=== PATIENT | female | born 1970 | race Caucasian/White ===

== ENCOUNTER 2017-11-30 06:16 | Day surgery (SDC) | payer BC ==
[2017-11-29 17:01] LABS: Absolute Lymphocytes (CBC) 1.9 K/uL (0.7-4.9); Absolute Monocytes 0.4 K/uL (0.1-1.3); Absolute Neutrophil 4.6 K/uL (1.8-8.0); Basophils % 0.8 % (0-1.3); Eosinophils % 1.3 % (0-4.4); Hematocrit 33.2 % (36.0-45.0); Lymphocytes % 26.3 % (15.3-44.8); MCH 26.3 pg (27.0-35.0); MCV 79.6 fL (80-100); MPV 7.5 fL (7.6-11.3); Monocytes % 6.2 % (3.3-12.3); RBC Red Blood Cell Count 4.18 M/uL (3.86-4.86)
[2017-11-29 17:05] LABS: Protime INR 0.98
[2017-11-29 17:59] LABS: Urine Appearance CLEAR; Urine Bilirubin NEGATIVE (NEG); Urine Blood 2+ (NEG); Urine Color YELLOW; Urine Glucose NEGATIVE (NEG); Urine Protein NEGATIVE (NEG); Urine Specific Gravity 1.025 (1.005-1.030); Urine Urobilinogen 0.2 mg/dL (0.2-1.0)
[2017-11-29 18:00] LABS: Urine Microscopic Reflex ORDER UMIC
[2017-11-29 19:36] LABS: Urine Bacteria <20 /HPF (<20); Urine Culture Reflex Order NOT NEEDED; Urine RBC <5 /HPF (NONE SEEN)
[2017-11-29 19:37] LABS: Calcium Oxalate Crystals- Ur FEW (NONE SEEN); Urine Mucus 1+ /HPF (NONE SEEN)
[2017-11-30] MEDS ORDERED: Ringers Lactate 1,000 ML IV ONE (06:52)
[2017-11-30] MEDS ORDERED: SILVER NITRATE 1 APPL TOP ONE (07:04)
[2017-11-30] MEDS: CEFAZOLIN/SWI 1gm 1 GM/10 ML SYR ONE ×2 (07:08→08:09)
[2017-11-30] MEDS ORDERED: PROPOFOL 200 MG/20 ML VIAL IV ONE (07:20)
[2017-11-30] MEDS ORDERED: KETOROLAC 30 MG/ML INJ ONE (07:22)
[2017-11-30] MEDS ORDERED: FENTANYL CITR 100 MCG/2 ML ONE ×2 (07:22)
[2017-11-30] MEDS ORDERED: ONDANSETRON HCL 40 MG/20 ML VIAL ONE (07:22)
[2017-11-30] MEDS ORDERED: DEXAMETHASONE 10 MG/ML VIAL ONE (07:22)
[2017-11-30] MEDS ORDERED: MIDAZOLAM HCL 2 MG/2 ML INJ ONE (07:22)
[2017-11-30] MEDS ORDERED: LIDOCAINE 2% MPF 5 ML VIAL ONE (07:22)
[2017-11-30] MEDS: SILVER NITRATE 1 APPL TOP ONE ×2 (09:18→09:37)
[2017-11-30] MEDS ORDERED: IBUPROFEN 400 MG TAB ONE (10:20)
--- NOTE | 2017-11-30 11:34 | OP ---
Surgeon: Sage Mayers MD Indications: A 46-year-old female, with an endometrial lesion, benign biopsy prior to admission. Fu ll preoperative counseling concerning procedures and complications, including infection, blood loss, anesthetic complications, injury to bladder, bowel, ureter, postoperative complications, clots in leg s, pneumonia, and no guarantee of course that the procedure will be effective, the patient knows this . Description Of Procedure: After general anesthesia and time-out was performed, the laminaria tent an d packs placed the evening prior were removed. The cervix already admitted the largest Fernandes dilator . Sounded to 10 to 10.5 cm. A hysteroscopy was performed. There was seemed to be at least a 3 cm o r more lesion involving the upper left portion of the patient's uterus. MyoSure was then performed a nd the specimen was eventually removed. The base of the fibroid was also treated with MyoSure as wel l as the rest of the endometrial cavity. 100 cc difference in fluid in and fluid out. This was thou ght to be insignificant. After MyoSure, endometrial ablation was performed. 6.5 length, 4.7 width, power 169, activation 56 seconds. Procedure discontinued. Tenaculum alexandr was treated with silver ni trate. Total blood loss thought to be 100 cc or less. The patient tolerated all procedures well, ortiz d 1 g of Ancef prior to the surgery, transferred to the recovery room in good condition. TOSIN/ADILENE Voice ID: [id number] Report ID: [id number]
--- NOTE | 2017-11-30 11:40 | DS ---
Hospital Course: The patient underwent general anesthetic, hysteroscopy, MyoSure, removal of the fib roid and ablation. Less than 100 cc blood loss, 100 cc or less fluid deficit, tolerated all procedur es well. She will be observed for the next 2 hours and then dismissed, to return to my office in 1 w [place]. To report any temperature elevation of 100 degrees or greater, severe pain, heavy bleeding, or any other type of abnormalities. She is doing well at this point, knows to contact me over the weeke nd if she has any problems. Final Diagnoses: Dysfunctional bleeding, endometrial fibroid, hysteroscopy, MyoSure, removal of fibr oid and ablation. TOSIN/ADILENE Voice ID: [id number] Report ID: [id number]
--- NOTE | 2017-11-30 11:43 | PREOPHP ---
Date of Admission: 11/30/2017 History Of Present Illness: A 46-year-old female with endometrial lesion, probable fibroid, dysfunct ional bleeding. Endometrial biopsy prior to surgery benign. Full preoperative counseling concerning procedure and possible complications, including infection, blood loss, anesthetic complications, inj ury to bladder, bowel, ureter, postoperative complications, clots in legs, pneumonia, and the efficac y of the procedure because is not guaranteed. She knows she could have recurrent or continued bleedi ng. Family History: Noncontributory. Allergies: NONE. Medications: No medicines prior to admission of any significance. Physical Examination: Completely normal. HEENT: Clear. Pupils are equal, round, and reactive to light and accommodation. Conjunctivae well perfused. No oral, lingual, or buccal lesions. Chest and Lungs: Clear. Heart: Without murmurs, thrills, heaves, or rubs. Breasts: Not examined. Abdomen: Soft. Uterus, second to third degree, retroverted, upper normal size, but otherwise clear. Extremities: Clear without edema, cyanosis, or clubbing. Plan: Essentially healthy female with endometrial lesion for hysteroscopy, MyoSure, removal of lesio n and ablation. TOSIN/ADILENE Voice ID: [id number]
== END 2017-11-30 11:20 | disposition home or self-care (01) ==
LOC: OR 06:16
PROVIDERS: ATTEND Specialist
PROC: 0U5B8ZZ Destruction of Endometrium, Via Natural or Artificial Opening Endoscopic (ICD-10-PCS; 2017-11-30)
PROC: 0UB98ZZ Excision of Uterus, Via Natural or Artificial Opening Endoscopic (ICD-10-PCS; principal; 2017-11-30 07:30)
DX: D25.9 Leiomyoma of uterus, unspecified (principal); N93.8 Other specified abnormal uterine and vaginal bleeding; K21.9 Gastro-esophageal reflux disease without esophagitis
CPT/HCPCS: 36415; 81003; 81015; 84703; 85025; 85610; 85730; 86850; 86900; 86901; 88305; J0690; J1100; J2250; J2405; J3010

== ENCOUNTER 2018-02-15 17:24 | Emergency (ER) | payer BC ==
[2018-02-15] MEDS ORDERED: LIDOCAINE 1% MPF 30 ML VIAL ONE (17:57)
[2018-02-15] MEDS ORDERED: TETANUS & DIPHTHERIA TOX,ADULT 0.5 ML VIAL ONE (17:57)
--- NOTE | 2018-02-15 18:34 | ER ---
Nurse's Notes [facility] Name: Araceli Lombardo Age: 47 yrs Sex: Female : 1970 Arrival Date: 02/15/2018 Time: 17:26 Bed 13 Private MD: Mahendra Pinto Diagnosis: Laceration without foreign body of finger without damage to nail-Right index Presentation: 02/15 17:34 Presenting complaint: Patient states: I cut my right hand a little while washing dishes la1 about 30 minutes ago. Transition of care: patient was not received from another setting of care. Complicating Factors: There are no complicating factors for this patient. Onset of symptoms was February 15, 2018. Risk Assessment: Do you want to hurt yourself or someone else? Patient reports no desire to harm self or others. Initial Sepsis Screen: Does the patient meet any 2 criteria? No. Patient's initial sepsis screen is negative. Does the patient have a suspected source of infection? No. Patient's initial sepsis screen is negative. Care prior to arrival: None. 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 - Social history:: Smoking status: Patient/guardian denies using tobacco. - Ebola Screening: : No symptoms or risks identified at this time. Screenin:59 Abuse screen: Denies threats or abuse. Denies injuries from another. Nutritional mg2 screening: No deficits noted. Tuberculosis screening: No symptoms or risk factors identified. Fall Risk None identified. Assessment: 17:58 General: Appears in no apparent distress. comfortable, Behavior is calm, cooperative. mg2 Pain: Complains of pain in right hand Pain does not radiate. Pain currently is 3 out of 10 on a pain scale. Quality of pain is described as aching, Pain began suddenly, 30 min ago. Is intermittent. Neuro: Level of Consciousness is awake, alert, obeys commands, Oriented to person, place, time, situation. Cardiovascular: Capillary refill < 3 seconds Patient's skin is warm and dry. Respiratory: Airway is patent Respiratory effort is even, unlabored, Respiratory pattern is regular, symmetrical. GI: No signs and/or symptoms were reported involving the gastrointestinal system. : No signs and/or symptoms were reported regarding the genitourinary system. EENT: No signs and/or symptoms were reported regarding the EENT system. Derm: Skin is intact, is healthy with good turgor, Skin is pink, warm \T\ dry. normal, Wound noted right hand Wound is open and not bleeding profusely. Musculoskeletal: Circulation, motion, and sensation intact. Capillary refill < 3 seconds. Injury Description: Laceration sustained to right hand is clean, 0.5 to 2.5 cm long, was sustained 30-60 minutes ago. is bleeding a small amount. Vital Signs: 17:35 BP 157 / 97; Pulse 97; Resp 16; Temp 98.7; Pulse Ox 98% on R/A; Weight 93.44 kg; Height la1 5 ft. 7 in. (170.18 cm); 18:49 BP 140 / 78; Pulse 80; Resp 18; Pulse Ox 100% on R/A; Pain 0/10; mg2 17:35 Body Mass Index 32.26 (93.44 kg, 170.18 cm) la1 ED Course: 17:26 Patient arrived in ED. rg4 17:26 Mahendra Pinto MD is Private Physician. rg4 17:34 Triage completed. la1 17:35 Arm band placed on left wrist. la1 17:36 Qamar Swan PA is PHCP. cp 17:36 Manolo Barksdale MD is Attending Physician. cp 17:43 Jama Graves, KENN is Primary Nurse. mg2 18:23 XRAY Hand RIGHT 3 View In Process Unspecified. EDMS 18:48 Assist provider with laceration repair on right hand that was 2.5 cm. or less using 3 mg2 stitches under local anesthesia. Set up tray. Performed by Qamar CANAS Dressed with 4X4s, Patient tolerated well. Patient did not have IV access during this emergency room visit. 18:49 Patient has correct armband on for positive identification. 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 Exp: mg2 03/16/2020. Lot #: [id number]. } Route: IM; Site: right deltoid; 18:47 Follow up: Response: No adverse reaction mg2 18:26 Drug: Lidocaine-Epinephrine -1%: (1:100,000) 5 ml Volume: 20 ml; Route: Infiltration; mg2 18:47 Follow up: Response: No adverse reaction; Marked relief of symptoms mg2 Outcome: 18:34 Discharge ordered by . carline 18:50 Discharged to home ambulatory. mg2 18:50 Condition: stable 18:50 Discharge instructions given to patient, Instructed on discharge instructions, follow up and referral plans. Demonstrated understanding of instructions, follow-up care, wound care. 18:51 Patient left the ED. mg2 Signatures: Dispatcher [employer] EDMS Eric Barnes, RN RN la1 Qamar Swan PA PA cp Garcia, Rubi rg4 Jama Graves RN RN mg2
--- NOTE | 2018-02-15 18:34 | EDPHYS ---
Physician Documentation [facility] Name: Araceli Lombardo Age: 47 yrs Sex: Female : 1970 Arrival Date: 02/15/2018 Time: 17:26 Bed 13 Private MD: Mahendra Pinto ED Physician Manolo Barksdale HPI: 02/15 17:43 This 47 yrs old Female presents to ER via Ambulatory with complaints of cp Laceration To Hand. 17:43 The patient has a laceration occurred at home, due to broken glass. The laceration(s) cp is(are) located on the radial side right index finger. 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 - Social history:: Smoking status: Patient/guardian denies using tobacco. - Ebola Screening: : No symptoms or risks identified at this time. ROS: 17:45 Constitutional: Negative for body aches, chills, fever. cp 17:45 Eyes: Negative for injury, pain, redness, and discharge. cp 17:45 Cardiovascular: Negative for chest pain, palpitations. 17:45 Respiratory: Negative for cough, shortness of breath, wheezing. 17:45 Skin: Positive for laceration(s), of the right index finger. 17:45 Neuro: Negative for numbness. 17:45 All other systems are negative. Exam: 17:50 Constitutional: The patient appears in no acute distress, alert, awake, well developed, cp well nourished. 17:50 Head/Face: Normocephalic, atraumatic. cp 17:50 Musculoskeletal/extremity: ROM: full active range of motion, in the right index finger, Perfusion: the extremity is normally perfused throughout, Sensation intact. Tendon exam: specific tendon testing normal through active and passive range of motion 17:50 Skin: injury, laceration(s), the wound is approximately 2.5 cm(s), of the radial side proximal phalanx right index finger, that can be described as clean, linear, without bleeding. Vital Signs: 17:35 BP 157 / 97; Pulse 97; Resp 16; Temp 98.7; Pulse Ox 98% on R/A; Weight 93.44 kg; Height la1 5 ft. 7 in. (170.18 cm); 18:49 BP 140 / 78; Pulse 80; Resp 18; Pulse Ox 100% on R/A; Pain 0/10; mg2 17:35 Body Mass Index 32.26 (93.44 kg, 170.18 cm) la1 Laceration: 18:30 Wound Repair of 2.5cm ( 1.0in ) subcutaneous laceration to proximal phalanx radial side cp right index finger. Linear shaped.. Distal neuro/vascular/tendon intact. Anesthesia: Wound infiltrated with 3 mls of 1% lidocaine. Wound prep: Moderate cleansing by nurse. Skin closed with 3 4-0 Prolene using interrupted sutures and sterile technique. Dressed with Bacitracin, 4x4's. Patient tolerated well. MDM: 17:36 Patient medically screened. cp 17:45 Differential diagnosis: superficial laceration, tendon injury, vascular injury. cp 18:33 Data reviewed: vital signs, nurses notes, radiologic studies, plain films. cp 18:33 Counseling: I had a detailed discussion with the patient and/or guardian regarding: the cp historical points, exam findings, and any diagnostic results supporting the discharge/admit diagnosis, radiology results, to return to the emergency department if symptoms worsen or persist or if there are any questions or concerns that arise at home. Response to treatment: the patient's symptoms have markedly improved after treatment, Wound flushed and irrigated, wound explored and no foreign bodies observed. Will discharge to home for continued monitoring. 02/15 17:41 Order name: XRAY Hand RIGHT 3 View; Complete Time: 18:45 cp 02/15 19:42 Interpretation: Report reviewed. 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 Exp: mg2 03/16/2020. Lot #: [id number]. } Route: IM; Site: right deltoid; 18:47 Follow up: Response: No adverse reaction mg2 18:26 Drug: Lidocaine-Epinephrine -1%: (1:100,000) 5 ml Volume: 20 ml; Route: Infiltration; mg2 18:47 Follow up: Response: No adverse reaction; Marked relief of symptoms mg2 Disposition: 18:56 Co-signature as Attending Physician, Manolo Barksdale MD. rn Disposition: 02/15/18 18:34 Discharged to Home. Impression: Laceration without foreign body of finger without damage to nail - Right index. - Condition is Stable. - Discharge Instructions: Laceration Care, Adult, Sutured Wound Care. - Medication Reconciliation Form, Thank You Letter, Antibiotic Education, Prescription Opioid Use form. - Follow up: Private Physician; When: 7 - 10 days; Reason: Staple/Suture removal. - Problem is new. - Symptoms have improved. Signatures: Dispatcher [employer] EDManolo Loving MD MD rn Attema, Lee, RN RN la1 Qamar Swan PA PA cp Jama Graves RN RN mg2 Corrections: (The following items were deleted from the chart) 18:51 18:34 02/15/2018 18:34 Discharged to Home. Impression: Laceration without foreign body mg2 of finger without damage to nail - Right index. Condition is Stable. Forms are Medication Reconciliation Form, Thank You Letter, Antibiotic Education, Prescription Opioid Use. Follow up: Private Physician; When: 7 - 10 days; Reason: Staple/Suture removal. Problem is new. Symptoms have improved. cp
--- NOTE | 2018-02-15 18:39 | RAD REPORT ---
EXAM DESCRIPTION: RAD - Hand Right 3 View - 02/15/2018 6:22 pm CLINICAL HISTORY: finger laceration COMPARISON: No comparisons FINDINGS: No fracture or dislocation of the right hand is seen. Tiny radiodensity seen adjacent to t he first metacarpal head on the oblique view is questionable for a small foreign body if this is the site clinical laceration.
== END 2018-02-15 18:51 | disposition home or self-care (01) ==
LOC: ER 17:24
PROC: 0JQJ0ZZ Repair Right Hand Subcutaneous Tissue and Fascia, Open Approach (ICD-10-PCS; principal; 2018-02-15)
DX: S61.210A Laceration without foreign body of right index finger without damage to nail, initial encounter (principal); W25.XXXA Contact with sharp glass, initial encounter; Y93.9 Activity, unspecified; Y92.009 Unspecified place in unspecified non-institutional (private) residence as the place of occurrence of the external cause; Z23 Encounter for immunization
CPT/HCPCS: 90714; 99283

== ENCOUNTER 2021-10-28 14:48 | Inpatient (IN) | payer BC ==
--- OUTSIDE RECORDS SUMMARY | 2021-10-28 15:10 | XMS REPORT | Clinical Summary ---
:1970 Author Organization [facility] Address [address] [place] [address] Care Team Providers Name Role Phone Sage Mayers MD Unavailable Akanksha Hernández MD Primary Care Provider [phone] Allergies No known active allergies Medications Medication Sig Dispensed Refills Start Date End Date Status omeprazole (PriLOSEC) Take 20 mg by 0 Active 20 mg capsule mouth every morning before breakfast. lisinopril-hydrochloro Take 1 tablet by 0 Active thiazide mouth daily. (PRINZIDE,ZESTORETIC) 10-12.5 mg per tablet Active Problems Problem Noted Date Abnormal findings on diagnostic imaging of breast 08/2018 Surgical History Surgery Date Site/Laterality Comments APPENDECTOMY 03/29/2005 - 04/25/2005 removed COLON SURGERY 12/19/2016 Large polyp deep gregory - no cancer. COLONOSCOPY 11/08/2016 Small polyps rem ursula - no cancer. TUBAL LIGATION 02/26/2002 - Bilateral 02/25/2003 EXCISION FIBROID UTERINE 11/26/2017 ENDOMETRIAL ABLATION 11/26/2017 Medical History Medical History Date Comments Hypertension 08/26/16 Blood pressure medic ine Polyp of colon 11/08/16 Had 3 polyps removed from colon Anemia 08/26/16 blood test in Dec. D oc said normal Gastroesophageal reflux disease Family History Medical History Relation Name Comments Bone cancer Maternal Uncle -Breast cancer Neg Hx Ovarian cancer Neg Hx Pancreatic cancer Neg Hx Relation Name Status Comments Maternal Uncle Social History Tobacco Use Types Packs/Day Years Used Date Never Smoker Smokeless Tobacco: Never Used Alcohol Use Standard Drinks/Week Comments No 0 (1 standard drink = 0.6 oz pure alcoho l) Sex Assigned at Date Recorded Not on file Obstetrics History Para Term AB IAB SAB Ectopic Multiple Living Live Births 3 3 Date Outcome GA Total Labor/2nd/3rd Weight Sex Delivery Anes PTL Camille A 1 A5 Name Clin Labor Para Para Para Comments Menarche - age 11 Menopause - N/A; last period in 2017. No periods since endometrial ablation. Parity - , age 21 OCPs - 8 years, stopped 2002. Hormones - none - 6 months. 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
--- OUTSIDE RECORDS SUMMARY | 2021-10-28 15:10 | XMS REPORT | Continuity of Care Document ---
:1970 Author Organization [facility] t Address [address] [place] [address] [address]. [address] [place] [address] Care Team Providers Name Role Phone Edgar MALIK, Akanksha Maldonado Primary Care Physician [phone] Sunny Amos Attending Clinician Unavailable Matt Attending Clinician Unavailable Sunny Amos Attending Clinician [phone] Sunny Amos Admitting Clinician Unavailable Matt Admitting Clinician Unavailable Payers Payer Name Policy Type Policy Number Effective Date Expiration Date S su[place] [id number] 2020 00:00:00 [place] Problems Condition Condition Condition Status Onset Resolution Last Treating Co mments Source Name Details Category Date Date Treatment Clinician Date Abnormal Abnormal Disease Active Unive rs findings findings 2-07 ity of on on 00:00: [place] diagnostic diagnostic 00 imaging of imaging of An [facility] Allergies, Adverse Reactions, Alerts Allergy Allergy Status Severity Reaction(s) Onset Inactive Treating Comm ents Source Name Type Date Date Clinician No Known DA Active [facility] [place] [facility] No Known DA Active U [facility] 5[facility] [place] [facility]ie 00:[facility] Family History Family Member Diagnosis Comments Start Date Stop Date Source Maternal uncle Bone cancer [facility] [place] MD Chente Mann r [place] Family member -Breast cancer [facility] ity of [place] MD Chente Mann r [place] Family member Ovarian cancer [facility] ity of [place] MD Chente Mann r [place] Family member [facility] [place] Social History Social Habit Start Date Stop Date Quantity Comments Source Tobacco use and 2018-03-29 2018-03-29 Smokeless tobacco Un iversity of exposure 00:00:00 00:00:00 non-user [place] MD [facility]onzales [facility] Alcohol intake 2018-03-29 2018-03-29 Current University of 00:00:00 00:00:00 non-drinker of [place] MD Carmelita aranda alcohol (finding) Cancer [place] Sex Assigned At [birth year] [facility] 00:00:00 00:00:00 [place] MD [facility]onz[facility] Smoking Status Start Date Stop Date Source Never smoked tobacco [facility] Medications Ordered Filled Start Stop Current Ordering Indication Dosage Frequency Signature Comments Components Source Medication Medication Date Date Medication? Clinician (SIG) Name Name omeprazole Yes 20mg Take 20 mg U nivers (PriLOSEC) 2-01 by mouth ity o f 20 mg 10:48: every [place] capsule 58 morning MD before Anderso breakfast. n [facility] lisinopril- Yes 1{tbl} Take 1 Un jim hydrochloro 2-01 tablet by ity of thiazide 10:48: mouth Jennifer (Antwan SHAH 58 daily. MD VARELA) Anderso 10-12.5 mg n per tablet Cancer Center omeprazole Yes 20mg Take 20 mg U nivers (PriLOSEC) 2-01 by mouth ity o f 20 mg 10:48: every [place] capsule 58 morning before Anderso breakfast. n [facility] lisinopril- Yes 1{tbl} Take 1 Un jim hydrochloro 2-01 tablet by ity of thiazide 10:48: mouth [place] (ZIDE,Z 58 daily. MD VARELA) Anderso 10-12.5 mg n per tablet Cancer Center Procedures This patient has no known procedures. Plan of Care Planned Activity Planned Date Details Comments Source Future Scheduled 2021-08-31 COVID-19 Vaccination [facility] [place] Test 06:05:47 (#1) [code = COVID-19 [facility] (#1)] Center Future Scheduled 2021-08-19 COVID-19 Vaccination [facility] Test 05:56:10 (#1) [code = COVID-19 [facility] Vaccination (#1)] Center Encounters Start End Encounter Admission Attending Care Care Encounter Source Date/Time Date/Time Type Type Clinicians Facility Department ID 2021-08-18 Inpatient ANANTH PaganTO [id number] [facility] 15:10:00 Sunny [id number] [place] [facility] 2021-09-07 2021-09-07 Outpatient FOG_[place]_ AOSM AOSM [id number] [facility] 05:12:00 05:12:00 Phyllis [id number] [facility] 2021-09-07 2021-09-07 Outpatient Bette AOSM AOSM [id number] 00:00:00 00:00:00 Sunny Banuelos [id number] 2021-08-25 2021-08-25 Outpatient FOG_[place]_ AOSM AOSM [id number] [place] 02:51:00 02:51:00 Phyllis [id number] [facility] 2021-08-25 2021-08-25 Outpatient FOG_[place]_ AOSM AOSM [id number] [place] 02:29:00 02:29:00 Phyllis [id number] [facility] 2021-08-22 2021-08-22 Outpatient FOG_[place]_ AOSM AOSM [id number] [place] 05:43:00 05:43:00 Phyllis [id number] [facility] 2021-08-22 2021-08-22 Outpatient ANANTH Pagan [id number] [facility] 05:03:00 05:03:00 Sunny Nixon [place] [facility] 2021-08-22 2021-08-22 Outpatient ANANTH PaganTO [id number] [facility] 05:03:00 05:03:00 Sunny [id number] [place] [facility] 2021-08-222021-08-22 Outpatient BONNIE Amos [id number] 00:00:00 00:00:00 Sunny Banuelos [id number] Results Test Description Test Time Test Comments Results Result Comments Source GLUBED 2021-08-22 06:12:00 Test Item Value Reference Range Interpretation Comme nts GLUBED (test code = GLUBED) 120 mg/dL 60-125 N
[2021-10-28] MEDS ORDERED: ONDANSETRON 4 MG/2 ML VIAL ONE (15:30)
[2021-10-28] MEDS ORDERED: MORPHINE 4 MG/ML SYR ONE (15:30)
[2021-10-28 15:39] LABS: Absolute Lymphocytes (CBC) 2.5 K/uL (0.7-4.9); Hematocrit 37.3 % (36.0-45.0); Lymphocytes % 28.2 % (15.3-44.8); MCV 86.8 fL (80-100); MPV 7.6 fL (7.6-11.3)
--- NOTE | 2021-10-28 15:59 | RAD REPORT ---
EXAM DESCRIPTION: RAD - Chest Single View - 10/28/2021 3:52 pm CLINICAL HISTORY: CHEST PAIN Chest pain. COMPARISON: Chest Pa And Lat (2 Views) dated 12/02/2019; Chest Pa And Lat (2 Views) dated 11/08/2017; ABDOMEN ACUTE SERIES dated 04/15/2005 FINDINGS: Portable technique limits examination quality. The lungs are grossly clear. The heart is normal in size. No displaced fractures. IMPRESSION: No acute intrathoracic process suspected.
[2021-10-28 16:00] LABS: Potassium 3.5 mmol/L (3.5-5.1); Troponin High Sensitivity 5.1 pg/mL (<58.9)
--- NOTE | 2021-10-28 17:02 | RAD REPORT ---
EXAM DESCRIPTION: CT - Chest For Pe Angio - 10/28/2021 4:51 pm CLINICAL HISTORY: Chest pain. chest pain COMPARISON: No comparisons TECHNIQUE: CT angiogram of the pulmonary arteries was performed with MIP. All CT scans are performed using dose optimization technique as appropriate and may include automated exposure control or mA/KV adjustment according to patient size. FINDINGS: No evidence of pulmonary thromboembolism. No acute aortic finding demonstrated. The lungs are clear. No significant pericardial or pleural fluid. No concerning bony finding. IMPRESSION: No evidence of pulmonary thromboembolism. No acute lung findings.
--- NOTE | 2021-10-28 17:17 | ER ---
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 EMS states: VSS, NS on ll1 monitor, aspirin 324mg PO given en route. 20 G L AC. fingerstick 227. Coronavirus screen: Vaccine status: Patient reports receiving the 2nd dose of the covid vaccine. Client denies travel out of the [place] in the last 14 days. At this time, the client does not indicate any symptoms associated with coronavirus-19. Ebola Screen: Patient denies travel to an Ebola-affected area in the 21 days before illness onset. Initial Sepsis Screen: Does the patient meet any 2 criteria? No. Patient's initial sepsis screen is negative. Does the patient have a suspected source of infection? No. Patient's initial sepsis screen is negative. Risk Assessment: Do you want to hurt yourself or someone else? Patient reports no desire to harm self or others. Onset of symptoms was October 28, 2021. 15:08 Method Of Arrival: EMS ll1 15:08 Acuity: VALERIO 3 ll1 Triage Assessment: 15:10 General: Appears uncomfortable, Behavior is cooperative, appropriate for age. Pain: ll1 Complains of pain in L chest Pain currently is 9 out of 10 on a pain scale. Cardiovascular: Reports chest pain. 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 - Social history:: Smoking status: Patient denies any tobacco usage or history of. - Family history:: not pertinent. - Hospitalizations: : No recent hospitalization is reported. Screenin:17 Abuse screen: Denies threats or abuse. Nutritional screening: No deficits noted. ll1 Tuberculosis screening: No symptoms or risk factors identified. Fall Risk IV access (20 points). Total Arreola Fall Scale indicates No Risk (0-24 pts). Assessment: 16:00 Reassessment: No changes from previously documented assessment. Patient and/or family ll1 updated on plan of care and expected duration. Pain level reassessed. 17:00 Reassessment: No changes from previously documented assessment. Patient and/or family ll1 updated on plan of care and expected duration. Pain level reassessed. Patient is alert, oriented x 3, equal unlabored respirations, skin warm/dry/pink. 18:00 Reassessment: No changes from previously documented assessment. Patient and/or family ll1 updated on plan of care and expected duration. Pain level reassessed. 19:28 General: Appears in no apparent distress. Behavior is calm, cooperative. Pain: Denies ha1 pain. Neuro: Level of Consciousness is awake, alert, obeys commands, Oriented to person, place, time, situation, Speech is normal. Cardiovascular: Denies chest pain, Patient's skin is warm and dry. Rhythm is sinus rhythm. Respiratory: No deficits noted. Airway is patent Trachea midline Respiratory effort is even, unlabored, Respiratory pattern is regular, symmetrical. Vital Signs: 15:15 BP 181 / 105; Pulse 74; Resp 18; Temp 97.9; Pulse Ox 100% ; Pain 9/10; ll1 16:23 BP 162 / 101; Pulse 65; Resp 18; Pulse Ox 100% ; ll1 18:25 BP 154 / 100; Pulse 73; Resp 20; Pulse Ox 95% on R/A; ll1 19:31 BP 136 / 85; Pulse 77; Resp 19 S; Pulse Ox 97% on R/A; ha1 ED Course: 15:07 Patient arrived in ED. eb 15:08 Manolo Barksdale MD is Attending Physician. rn 15:09 Triage completed. ll1 15:09 Arm band placed on Patient placed in an exam room, on a stretcher. ll1 15:09 Maintain EMS IV. Dressing intact. Good blood return noted. Site clean \T\ dry. Gauge \T\ ll 1 site: 20 L AC. 15:16 Geri Hurley, RN is Primary Nurse. ll1 15:17 Patient has correct armband on for positive identification. Bed in low position. Call ll1 light in reach. Side rails up X2. Client placed on continuous cardiac and pulse oximetry monitoring. NIBP monitoring applied. monitor car operator on. 15:36 EKG done, by ED staff, reviewed by Manolo Barksdael MD. em1 15:54 XRAY Chest (1 view) In Process Unspecified. EDMS 16:53 CT Chest For PE Angio In Process Unspecified. EDMS 17:16 Nabor Richmond MD is Hospitalizing Provider. rn 23:20 No provider procedures requiring assistance completed. Patient admitted, IV remains in ll3 place. Administered Medications: 15:28 Drug: morphine 4 mg Route: IVP; Infused Over: 4 mins; Site: right antecubital; ss 17:17 Follow up: Response: No adverse reaction; Pain is decreased; RASS: Alert and Calm (0) ll1 15:28 Drug: Zofran (Ondansetron) 4 mg Route: IVP; Site: right antecubital; ss 17:17 Follow up: Response: No adverse reaction ll1 17:17 Not Given (given en routee): Aspirin Chewable Tablet 324 mg PO once; 81 mg tablets x 4 ll1 18:05 Drug: Nitroglycerin 0.4 mg Route: Sublingual; ll1 18:42 Follow up: Response: No adverse reaction ll1 Medication: 15:17 VIS not applicable for this client. ll1 Outcome: 17:16 Decision to Hospitalize by Provider. rn 23:20 Admitted to Tele accompanied by tech, via wheelchair, room 427, with chart, Report ll3 called to KENN Dunlap 23:20 Condition: stable 23:20 Instructed on the need for admit, Demonstrated understanding of instructions. 23:21 Patient left the ED. ll3 Signatures: Dispatcher [employer] EDMS Manolo Barksdale MD MD rn Martinez, Eric em1 Jillian Tineo RN RN Lanie Knapp Lynsay, RN RN ll1 Rory Shah RN RN ll3 Mamie Nowak RN RN ha1
--- NOTE | 2021-10-28 17:17 | EDPHYS ---
Physician Documentation [facility] Name: Araceli Lombardo Age: 50 yrs Sex: Female : 1970 Arrival Date: 10/28/2021 Time: 15:07 Bed 4 Private MD: ED Physician Manolo Barksdale HPI: 10/28 16:57 This 50 yrs old Female presents to ER via EMS with complaints of Chest Pain > 30 y/o. rn 16:57 The patient or guardian reports chest pain that is located primarily in the substernal rn area. Onset: just prior to arrival. The pain does not radiate. Associated signs and symptoms: Pertinent positives: diaphoresis, dizziness, lightheadedness, shortness of breath, Pertinent negatives: abdominal pain, syncope. The chest pain is described as a heaviness, a pressure. Duration: The patient or guardian reports a single episode, that is still ongoing. Modifying factors: The symptoms are alleviated by nothing. the symptoms are aggravated by nothing. Severity of pain: At its worst the pain was moderate in the emergency department the pain is unchanged. The patient has not experienced similar symptoms in the past. The patient has not recently seen a physician. Pt reports at work began with chest pain, substernal, nonradiating, assoc with nausea and sob. . 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 - Social history:: Smoking status: Patient denies any tobacco usage or history of. - Family history:: not pertinent. - Hospitalizations: : No recent hospitalization is reported. ROS: 16:57 Constitutional: Negative for fever, chills, and weight loss, Eyes: Negative for injury, rn pain, redness, and discharge, Cardiovascular: + chest pain Respiratory: + sob Abdomen/GI: Negative for abdominal pain, nausea, vomiting, diarrhea, and constipation, Back: Negative for injury and pain, MS/Extremity: Negative for injury and deformity, Skin: Negative for injury, rash, and discoloration, Neuro: Negative for headache, weakness, numbness, tingling, and seizure. Exam: 15:52 ECG was reviewed by the Attending Physician. rn 16:57 Constitutional: This is a well developed, well nourished patient who is awake, alert, rn and in no acute distress. Head/Face: Normocephalic, atraumatic. Eyes: Pupils equal round and reactive to light, extra-ocular motions intact. Lids and lashes normal. Conjunctiva and sclera are non-icteric and not injected. Cornea within normal limits. Periorbital areas with no swelling, redness, or edema. Cardiovascular: Regular rate and rhythm. No pulse deficits. Respiratory: No increased work of breathing, no retractions or nasal flaring. Abdomen/GI: Soft, non-tender Skin: Warm, dry MS/ Extremity: Pulses equal, no cyanosis. Neuro: Awake and alert, GCS 15 Vital Signs: 15:15 BP 181 / 105; Pulse 74; Resp 18; Temp 97.9; Pulse Ox 100% ; Pain 9/10; ll1 16:23 BP 162 / 101; Pulse 65; Resp 18; Pulse Ox 100% ; ll1 18:25 BP 154 / 100; Pulse 73; Resp 20; Pulse Ox 95% on R/A; ll1 19:31 BP 136 / 85; Pulse 77; Resp 19 S; Pulse Ox 97% on R/A; ha1 MDM: 15:08 Patient medically screened. rn 17:15 Differential diagnosis: acute myocardial infarction, acute pericarditis, anxiety, rn coronary artery disease pleurisy, pneumothorax, pulmonary embolus, stable angina, unstable angina. The patient was given aspirin in the Emergency Department. Data reviewed: vital signs, nurses notes, lab test result(s), EKG, radiologic studies, CT scan, plain films. Counseling: I had a detailed discussion with the patient and/or guardian regarding: the historical points, exam findings, and any diagnostic results supporting the discharge/admit diagnosis, lab results, radiology results, the need for further work-up and treatment in the hospital. Response to treatment: the patient's symptoms have mildly improved after treatment, and as a result, I will admit patient. 17:16 Admission orders: after a detailed discussion of the patient's condition and case, the international student advisor orders are written by me. 10/28 15:15 Order name: Basic Metabolic Panel; Complete Time: 16:04 rn 10/28 15:15 Order name: CBC with Diff; Complete Time: 16:04 rn / 15:15 Order name: D-Dimer; Complete Time: 16:38 rn 10/28 15:15 Order name: NT PRO-BNP; Complete Time: 16:04 rn 10/28 15:15 Order name: Troponin HS; Complete Time: 16:04 rn 10/28 15:15 Order name: SARS RAPID; Complete Time: 17:37 rn 10/28 18:29 Order name: Hemoglobin A1c EDN[facility] 10/28 18:29 Order name: Lipid Profile [facility] 10/28 18:29 Order name: Thyroid Stimulating Hormone [facility] 10/28 18:29 Order name: CBC with Automated Diff [facility] 10/28 18:29 Order name: CBC with Automated Diff [facility] 10/28 18:29 Order name: CBC with Automated Diff [facility] 10/28 18:29 Order name: CBC with Automated Diff [facility] 10/28 18:29 Order name: Comprehensive Metabolic Panel [facility] 10/28 15:15 Order name: XRAY Chest (1 view); Complete Time: 16:04 rn 10/28 15:15 Order name: EKG; Complete Time: 15:16 rn 10/28 15:15 Order name: Cardiac monitoring; Complete Time: 15:32 rn 10/28 15:15 Order name: EKG - Nurse/Tech; Complete Time: 15:32 rn 10/28 16:04 Order name: CT Chest For PE Angio; Complete Time: 17:15 rn 10/28 18:29 Order name: CONS Physician Consult [facility] 10/28 18:29 Order name: 60g Consistent Carbohydrate (ADA 1800/2000) [facility] 10/28 18:29 Order name: Comprehensive Metabolic Panel [facility] 10/28 18:29 Order name: Comprehensive Metabolic Panel [facility] 10/28 18:29 Order name: Comprehensive Metabolic Panel [facility] 10/28 18:39 Order name: Troponin High Sensitivity [facility] 10/28 20:49 Order name: Glucose, Ancillary Testing EDN[facility] 10/28 15:15 Order name: IV Saline Lock; Complete Time: 15:16 rn 10/28 15:15 Order name: Labs collected and sent; Complete Time: 15:16 rn 10/28 15:15 Order name: O2 Per Protocol; Complete Time: 15:16 rn 10/28 15:15 Order name: O2 Sat Monitoring; Complete Time: 15:16 rn EC:52 Rate is 69 beats/min. Rhythm is regular. QRS [place] is Normal. CA interval is normal. QRS rn interval is normal. QT interval is normal. No Q waves. T waves are Normal. No ST changes noted. Clinical impression: Normal ECG. Interpreted by me. Reviewed by me. Administered Medications: 15:28 Drug: morphine 4 mg Route: IVP; Infused Over: 4 mins; Site: right antecubital; ss 17:17 Follow up: Response: No adverse reaction; Pain is decreased; RASS: Alert and Calm (0) ll1 15:28 Drug: Zofran (Ondansetron) 4 mg Route: IVP; Site: right antecubital; ss 17:17 Follow up: Response: No adverse reaction ll1 17:17 Not Given (given en routee): Aspirin Chewable Tablet 324 mg PO once; 81 mg tablets x 4 ll1 18:05 Drug: Nitroglycerin 0.4 mg Route: Sublingual; ll1 18:42 Follow up: Response: No adverse reaction ll1 Disposition Summary: 10/28/21 17:16 Hospitalization Ordered Hospitalization Status: Observation rn Provider: Nabor Richmond rn Location: Telemetry/MedSurg (observation) rn Condition: Stable rn Problem: new rn Symptoms: have improved rn Bed/Room Type: Standard rn Room Assignment: 427(10/28/21 21:56) Diagnosis - Chest pain, unspecified rn Forms: - Medication Reconciliation Form rn - SBAR form rn Signatures: Dispatcher [employer] Manolo Knox MD MD rn Smirch, Shelby, RN RN ss Garcia, Cindy, RN RN Geri Marquez RN RN 1 Corrections: (The following items were deleted from the chart) 21:56 17:16 rn cg
[2021-10-28 17:31] LABS: SARS-CoV-2 Antigen Rapid Res Negative (Negative)
[2021-10-28] MEDS ORDERED: NITROGLYCERIN 0.4 MG/TAB SL ONE (18:15)
[2021-10-28] MEDS ORDERED: HYDRALAZINE HCL 20 MG/ML VIAL IV PRN (18:21)
[2021-10-28] MEDS ORDERED: GLUCAGON 1 MG/VIAL IM PRN (18:22)
[2021-10-28] MEDS ORDERED: SIMETHICONE 80 MG TAB PO ONE (18:22)
[2021-10-28] MEDS ORDERED: SIMETHICONE 40 MG/ 0.6 ML PO PRN (18:22)
[2021-10-28] MEDS ORDERED: MAGNES/ALUMIN/SIMET 30ML UCUP PO PRN (18:22)
[2021-10-28] MEDS ORDERED: D50W 25 GM/50 ML SYRINGE IV PRN (18:22)
--- NOTE | 2021-10-28 18:34 | P.HP ---
Certification for Inpatient Patient admitted to: Inpatient Patient will require the following post-hospital care: None Practitioner: I am a practitioner with admitting privileges, knowledge of patient current condition, hospital course, and medical plan of care. Services: Services provided to patient in accordance with Admission requirements found in Title 42 Section 412.3 of the Code of Federal Regulations Patient History Date of Service: 10/28/21 Primary Care Provider: stephanie Reason for admission: chest pain History of Present Illness: Patient is a pleasant 50 year old. She has a history of dm2 for a year. HTN, hypothyroidism and gerd. She was at school. When she started feeling some chest pressure. Starting from her left axilla and migrating towards the sternum. The pain was a 9/10 and was a squeezing type. She had not taken her lisinopril this morning. The patient lasted approx 30min. She then came to the ER. Initial work up was negative. She has had similar symptoms in the past. However not frequently or for this duration. Her last a1c was 6.2 Allergies No Known Allergies Allergy (Verified 11/29/17 16:08) Home Medications: Omeprazole 20 mg PO DAILY 11/29/17 Review of Systems 10-point ROS is otherwise unremarkable Cardiovascular: Chest Pain, Palpitations Physical Examination - Physical Exam General: Alert, In no apparent distress HEENT: Atraumatic, PERRLA, Mucous membr. moist/pink, EOMI, Sclerae nonicteric Neck: Supple, 2+ carotid pulse no bruit, No LAD, Without JVD or thyroid abno rmality Respiratory: Clear to auscultation bilaterally, Normal air movement Cardiovascular: Regular rate/rhythm, Normal S1 S2 Gastrointestinal: Normal bowel sounds, No tenderness Musculoskeletal: No tenderness Integumentary: No rashes Neurological: Normal gait, Normal speech, Normal strength at 5/5 x4 extr, Normal tone, Normal affect Lymphatics: No axilla or inguinal lymphadenopathy - Studies Laboratory Data (last 24 hrs) 10/28/21 15:10: WBC 8.70, Hgb 12.3, Hct 37.3, Plt Count 455 H 10/28/21 15:10: Sodium 138, Potassium 3.5, BUN 16, Creatinine 1.14, Glucose 194 H Assessment and Plan - Problems (Diagnosis) (1) Chest pain Current Visit: Yes Status: Acute Plan: CT is negative for PE. Her initial troponin are normal. Her EKG is normal. Will admit her for a rule out. the patient is a diabetic and at higher risk. Will have her seen by Cardiology. If her troponins remain negative we can discharge her for an out patient work up. 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 Will continue the metformin and add sliding scale insulin. Will check her a1c again. start an ada diet. 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 Will check a tsh on the patient. (5) GERD (gastroesophageal reflux disease) Current Visit: Yes Status: Chronic Plan: restart her omeprazole. Will add simethicone and mylanta to give the patient relief. Qualifiers: Esophagitis presence: esophagitis presence not specified Qualified Code(s): K21.9 - Gastro-esophageal reflux disease without esophagitis Discharge Plan: Home Plan to discharge in: 48 Hours - Advance Directives Does patient have a Living Will: No Does patient have a Durable POA for Healthcare: No - Code Status/Comfort Care Code Status Assessed: No Code Status: Full Code Critical Care: No Time Spent Managing Pts Care (In Minutes): 45
[2021-10-28] MEDS: INSULIN -REGULAR HUMAN 50 UNIT/0.5 ML ML SQ SCH (21:00)
[2021-10-28 21:40] VITALS: BMI 34.9
[2021-10-29 02:31] VITALS: O2SAT 97
[2021-10-29 05:37] LABS: Absolute Lymphocytes (CBC) 2.6 K/uL (0.7-4.9); Hematocrit 34.1 % (36.0-45.0); Lymphocytes % 31.1 % (15.3-44.8); MPV 7.2 fL (7.6-11.3); RBC Red Blood Cell Count 4.01 M/uL (3.86-4.86)
[2021-10-29] MEDS ORDERED: carvediloL 3.125 MG TAB PO SCH (06:00)
[2021-10-29 06:03] LABS: Albumin 3.1 g/dL (3.4-5.0); Bilirubin Total 0.3 mg/dL (0.2-1.0); Potassium 3.7 mmol/L (3.5-5.1); Protein, Total 6.8 g/dL (6.4-8.2); Thyroid Stimulating Hormone 0.569 uIU/mL (0.360-3.740)
[2021-10-29] MEDS ORDERED: LEVOTHYROXINE SOD 0.125 MG TAB PO SCH (06:30)
[2021-10-29] MEDS ORDERED: PANTOPRAZOLE 40MG TABLET PO SCH (06:30)
[2021-10-29] MEDS: INSULIN -REGULAR HUMAN 50 UNIT/0.5 ML ML SQ SCH (07:30)
[2021-10-29] MEDS ORDERED: METFORMIN ER 500 MG TAB PO SCH (08:00)
[2021-10-29] MEDS ORDERED: lisinopriL 20 MG TAB PO SCH (09:00)
[2021-10-29] MEDS ORDERED: ASPIRIN EC 81 MG TAB PO SCH (09:00)
[2021-10-29 09:07] VITALS: BP 122/70
--- NOTE | 2021-10-29 09:21 | EKG ---
Test Date: 2021-10-28 Test Time: 15:30:33 Commodities Broker: JOSE MEASUREMENT RESULTS: Intervals: Rate: 69 ID: [id number] QRSD: 98 QT: 438 QTc: 469 [place]: P: 25 ID: [id number] QRS: 36 T: 29 INTERPRETIVE STATEMENTS: Normal sinus rhythm Normal ECG No previous ECG available for comparison Electronically Signed On 10-29-21 09:18:43 CDT by Luis Newberry
[2021-10-29 09:30] VITALS: TEMP 98.1
--- NOTE | 2021-10-29 11:31 | P.DS ---
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 use: without ocean transportation intermediary use Diabetes mellitus complication status: without complication Qualified Code(s): E11.9 - Type 2 diabetes mellitus without complications (3) HTN (hypertension) Current Visit: Yes Status: Acute Qualifiers: Hypertension type: primary hypertension Qualified Code(s): I10 - Essential (primary) hypertension (4) Hypothyroidism Current Visit: Yes Status: Acute (5) GERD (gastroesophageal reflux disease) Current Visit: Yes Status: Chronic Qualifiers: Esophagitis presence: esophagitis presence not specified Qualified Code(s): K21.9 - Gastro-esophageal reflux disease without esophagitis Brief History of Present Illness: Patient is a pleasant 50 year old. She has a history of dm2 for a year. HTN, hypothyroidism and gerd. She was at school. When she started feeling some chest pressure. Starting from her left axilla and migrating towards the sternum. The pain was a 9/10 and was a squeezing type. She had not taken her lisinopril this morning. The patient lasted approx 30min. She then came to the ER. Initial work up was negative. She has had similar symptoms in the past. However not frequently or for this duration. Her last a1c was 6.2 Hospital Course: Patient was kept in house. She has no chest pain this morning. Was seen by Dr. Valero. Plan for out patient work up. Will discharge her and have her follow up with Dr. Valero and Dr. Pinto Vital Signs/Physical Exam: Temp Pulse Resp BP Pulse Ox 98.1 F 66 16 122/70 94 10/29/21 08:00 10/29/21 09:06 10/29/21 08:00 10/29/21 09:06 10/29/21 08:00 General: Alert, In no apparent distress HEENT: Atraumatic, PERRLA, EOMI Neck: Supple, JVD not distended Respiratory: Clear to auscultation bilaterally, Normal air movement Cardiovascular: Regular rate/rhythm, Normal S1 S2 Gastrointestinal: Normal bowel sounds, No tenderness Musculoskeletal: No tenderness Integumentary: No rashes Neurological: Normal speech, Normal tone, Normal affect Lymphatics: No axilla or inguinal lymphadenopathy Laboratory Data at Discharge: WBC 8.30 K/uL (4.3-10.9) 10/29/21 05:06 Hgb 11.7 g/dL (12.0-15.0) L 10/29/21 05:06 Hct 34.1 % (36.0-45.0) L 10/29/21 05:06 Plt Count 424 K/uL (152-406) H 10/29/21 05:06 Sodium 137 mmol/L (136-145) 10/29/21 05:06 Potassium 3.7 mmol/L (3.5-5.1) 10/29/21 05:06 BUN 12 mg/dL (7-18) 10/29/21 05:06 Creatinine 0.91 mg/dL (0.55-1.3) 10/29/21 05:06 Glucose 119 mg/dL (74-106) H 10/29/21 05:06 Total Bilirubin 0.3 mg/dL (0.2-1.0) 10/29/21 05:06 AST 14 U/L (15-37) L 10/29/21 05:06 ALT 24 U/L (12-78) 10/29/21 05:06 Alkaline Phosphatase 63 U/L (45-117) 10/29/21 05:06 Triglycerides 168 mg/dL (<150) H 10/29/21 05:06 Cholesterol 172 mg/dL (<200) 10/29/21 05:06 HDL Cholesterol 45 mg/dL (40-60) 10/29/21 05:06 Cholesterol/HDL Ratio 3.82 10/29/21 05:06 Home Medications: Fenofibrate Nanocrystallized [Fenofibrate] 145 mg PO DAILY 10/28/21 Furosemide 20 mg PO DAILY 10/28/21 Levothyroxine [Synthroid*] 0.125 mg PO DAILY 10/28/21 Metformin HCl 500 mg PO DAILY 10/28/21 lisinopriL [Lisinopril] 20 mg PO DAILY 10/28/21 Diet: ADA Activity: Ad josé Followup: Mahendra Pinto MD [ACTIVE - CAN ADMIT] - 1-2 Weeks Jose Valero MD [ACTIVE - CAN ADMIT] - 1 Week Time spent managing pt's care (in minutes): 20
[2021-10-29] MEDS ORDERED: ENOXAPARIN 40 MG/0.4 ML SQ SCH (17:00)
--- NOTE | 2021-10-30 12:13 | CON ---
Date of Consultation: 10/29/2021 Admitted on 10/28/[address] Richmond's service with chest pain. I saw the patient on 10/29/2021. History Of Present Illness: Ms. Lombardo is 50. Has a history of hypertension, diabetes, dyslipidemia, hypothyroidism. Came in with left-sided chest pain, more on the lateral chest underneath her left b reast without any nausea, vomiting, diaphoresis, PND, orthopnea, pedal edema, palpitations, or syncop e. CA has already been ruled out. She had a negative chest x-ray, negative CTA for pulmonary embolu s, although her D-dimer was elevated. Her troponin and BNP and EKG were unremarkable. She is pain f ree now. Past Medical History: As stated above. Allergies: NONE. Review of Systems: Negative. Social History: Negative. Family History: Noncontributory. Physical Examination: Vital Signs: Stable. She was afebrile. HEENT: Negative. Neck: Supple without any bruit, lymphadenopathy, JVD, or thyromegaly. Chest: Clear to auscultation and percussion. Cardiac: Revealed a regular rhythm and rate. No murmurs, gallops, or rubs. Abdomen: Benign. Extremities: Revealed no clubbing, cyanosis, or edema. Diagnostic Data: As stated earlier. Impression And Plan: Atypical chest pain in a patient with hypertension, diabetes and dyslipidemia. I think she deserves to have an outpatient MPI and an echocardiogram. I will make an arrangement fo r that. The case was discussed with Dr. Richmond. She can go home today. I will make arrangements for outpatient followup soon. Her diabetes, hypertension, hypertriglyceridemia, and hypothyroidism are stable. Elevated D-dimer is nonspecific as always. NB/MODL Voice ID: [id number] Report ID: [id number]
== END 2021-10-29 12:00 | disposition home or self-care (01) | DRG 313 ==
LOC: ER 14:48 → ERHOLD 18:23 → 4TH 22:26
PROVIDERS: ADMIT Internal Medicine; ATTEND Internal Medicine
DX: R07.89 Other chest pain (principal); E03.9 Hypothyroidism, unspecified; K21.9 Gastro-esophageal reflux disease without esophagitis; I10 Essential (primary) hypertension; E78.1 Pure hyperglyceridemia; E11.9 Type 2 diabetes mellitus without complications; Z91.14 Patient's other noncompliance with medication regimen; Z79.84 Long term (current) use of oral hypoglycemic drugs; Z79.890 Hormone replacement therapy; Z79.899 Other long term (current) drug therapy; Z20.822 Contact with and (suspected) exposure to COVID-19
CPT/HCPCS: 36415; 71045; 71275; 80048; 80053; 80061; 82947; 83036; 83880; 84443; 84484; 85025; 85379; 87811; 93005; 96374; 96375; 99285; J2405; Q9967